=== PATIENT | male | born 1995 | race Caucasian/White ===

== ENCOUNTER 2016-09-14 10:29 | Emergency (ER) | payer OTHER ==
[~2016-09-14] VITALS: Ht 180.3 cm; Wt 65.3 kg
--- NOTE | 2016-09-14 10:33 | NUR ---
Jayme levy in [facility] - 09/14/16 at 1035 by JEN Patient ambulated to bed 05.
[2016-09-14 10:38] VITALS: BP 117/68
--- NOTE | 2016-09-14 10:40 | NUR ---
PATIENT PRESENTS TO ED WITH C/O HE HAD A BOTTLE BROKEN OVER NOSE X 2 DAYS AGO, LAC APPEARS INTACT NO ACTIVE DRAINAGE NOTED---NASAL SWELLING DENIES KO HX---DENIES RX----NONE . DENIES N/V/D; SKIN IS PINK/WARM/DRY; AAOX4 WITH EVEN AND STEADY GAIT; LUNGS CLEAR BL; HR EVEN AND REGULAR; PT DENIES ANY FEVER, CP, SOB, OR COUGH AT THIS TIME; PATIENT STATES PAIN OF 3/10 AT THIS TIME; VSS; PATIENT POSITIONED FOR COMFORT; HOB ELEVATED; BEDRAILS UP X2; BED DOWN. ER MD MADE AWARE OF PT STATUS.
--- NOTE | 2016-09-14 10:43 | NUR ---
Patient ambulated to bed 07.
--- NOTE | 2016-09-14 10:48 | NUR ---
Dr. Yap evaluating patient at bedside.
--- NOTE | 2016-09-14 11:14 | NUR ---
Patient to XRAY via wheelchair per tech.
--- NOTE | 2016-09-14 11:14 | NUR ---
SIGIFREDO PT TAKEN OFF THE UNIT VIA WHEEL CHAIR FOR XRAY BY RAMÍREZ KUHN
--- NOTE | 2016-09-14 11:50 | NUR ---
TDAP NOT GIVEN; PER PT RECIEVED TDAP 3 YEARS AGO, DR COLON NOTIFIED
[2016-09-14 12:15] VITALS: BP 114/67
--- NOTE | 2016-09-14 12:15 | NUR ---
Patient discharged with v/s stable. Written and verbal after care instructions given and explained. Patient alert, oriented and verbalized understanding of instructions. Ambulatory with steady gait. All questions addressed prior to discharge. ID band removed. Patient advised to follow up with PMD. Rx of TYLENOL, KEFLEX given. Patient educated on indication of medication including possible reaction and side effects. Opportunity to ask questions provided and answered.
== END 2016-09-14 12:15 | disposition home or self-care (01) ==
LOC: MED 10:29
DX: S01.20XA Unspecified open wound of nose, initial encounter (principal); Y04.8XXA Assault by other bodily force, initial encounter; Y93.89 Activity, other specified; Y92.89 Other specified places as the place of occurrence of the external cause; Y99.8 Other external cause status
CPT/HCPCS: 70160; 99284

== ENCOUNTER 2016-10-10 10:09 | Emergency (ER) | payer OTHER ==
[~2016-10-10] VITALS: Ht 175.3 cm; Wt 63.0 kg
[2016-10-10 10:27] VITALS: BP 124/78
--- NOTE | 2016-10-10 10:43 | NUR ---
DR. LEWIS AT BEDSIDE
--- NOTE | 2016-10-10 10:45 | NUR ---
PATIENT PRESENTS TO ED WITH C/O NOSE PAIN/ABRASION SUSTAINED 2 WEEKS AGO AND NOW FEELS THERE IS GLASS IMBEDDED IN THE ABRASION ON THE BRIDGE OF HIS NOSE. DENIES N/V/D; SKIN IS PINK/WARM/DRY; AAOX4 WITH EVEN AND STEADY GAIT; LUNGS CLEAR BL; HR EVEN AND REGULAR; PT DENIES ANY FEVER, CP, SOB, OR COUGH AT THIS TIME; PATIENT STATES PAIN OF 0/10 AT THIS TIME; PATIENT POSITIONED FOR COMFORT; HOB ELEVATED; BEDRAILS UP X2; BED DOWN. PT AAO, CALM AT THIS TIME
[2016-10-10 11:31] VITALS: BP 118/61
--- NOTE | 2016-10-10 11:32 | NUR ---
Patient discharged with v/s stable. Written and verbal after care instructions given and explained. Patient verbalized understanding. Ambulatory with steady gait. All questions addressed prior to discharge. Advised to follow up with PMD. PT SIGIFREDO
== END 2016-10-10 11:32 | disposition home or self-care (01) ==
LOC: MED 10:09
DX: S00.35XA Superficial foreign body of nose, initial encounter (principal); S00.31XD Abrasion of nose, subsequent encounter; F17.210 Nicotine dependence, cigarettes, uncomplicated; W22.8XXD Striking against or struck by other objects, subsequent encounter
CPT/HCPCS: 10120; 99284

== ENCOUNTER 2021-12-11 11:09 | Emergency (ER) | payer OTHER ==
[~2021-12-11] VITALS: Ht 175.3 cm; Wt 81.6 kg
[2021-12-11 11:11] VITALS: BP 130/60
--- NOTE | 2021-12-11 11:20 | NUR ---
WALKED IN C/O LOW BACK PAIN ONSET YESTERDAY AFTER LIFTING SOMETHING HEAVY FROM GROUND. STATES 4/10 CONSTANT PAIN THAT GETS WORSE WHEN BENDING DOWN. AAOX4, AMBULATORY. VITALS STABLE
[2021-12-11] MEDS ORDERED: KETOROLAC 30 MG/ML VIAL IM ONE (11:25)
[2021-12-11] MEDS ORDERED: IBUP-2213 PO (11:45)
[2021-12-11] MEDS ORDERED: LID5T TP (11:45)
[2021-12-11] MEDS ORDERED: CYCL-711 PO (11:45)
--- NOTE | 2021-12-11 12:04 | NUR ---
Patient discharged with v/s stable. Written and verbal after care instructions given and explained. Patient alert, oriented and verbalized understanding of instructions. Ambulatory with steady gait. All questions addressed prior to discharge. ID band removed. Patient advised to follow up with PMD. Rx of LIDO PATCH, IBUPROFEN, FLEXERIL given. Patient educated on indication of medication including possible reaction and side effects. Opportunity to ask questions provided and answered.
== END 2021-12-11 12:04 | disposition home or self-care (01) ==
LOC: MED 11:09
DX: S39.012A Strain of muscle, fascia and tendon of lower back, initial encounter (principal); F12.90 Cannabis use, unspecified, uncomplicated; Z72.89 Other problems related to lifestyle; W18.30XA Fall on same level, unspecified, initial encounter; Y93.89 Activity, other specified; Y92.89 Other specified places as the place of occurrence of the external cause; Y99.8 Other external cause status
CPT/HCPCS: 81002; 96372; 99283; J1885